=== PATIENT | male | born 1965 | race Hispanic/Latino ===

== ENCOUNTER 2021-09-12 18:52 | Emergency (ER) | payer SELFPAY ==
[~2021-09-12] VITALS: Ht 175.3 cm; Wt 108.9 kg
[2021-09-12 20:40] VITALS: BP 162/85
== END 2021-09-12 20:39 | disposition home or self-care (01) ==
LOC: EDH 18:52
DX: G40.909 Epilepsy, unspecified, not intractable, without status epilepticus (principal); I10 Essential (primary) hypertension